=== PATIENT | female | born 1965 | race Asian ===

== ENCOUNTER 2020-07-24 10:14 | Emergency (ER) | payer OTHER ==
[~2020-07-24] VITALS: Ht 157.5 cm; Wt 62.6 kg
[2020-07-24 10:19] VITALS: BP 154/78
--- NOTE | 2020-07-24 10:20 | NUR ---
54 y/o F BIB SELF C/C OF [address] LEFT LEG PAIN THAT BEGAN X3DAYS AGO WHILE SHE WAS AT HOME. SHE ADMITS THE PAIN STOPS WHEN SHE LAYS DOWN OR STANDS UP BUT IS AGGREVATED WHEN SHE WALKS. PT DENIES ANY INJURY. SHE REPORTS GOING TO URGENT CARE YESTERDAY AND RECEIVED A SHOT BUT NO US OR SCANS WERE DONE. THE URGENT CARE DR PRESCRIBED HER IBUPROFEN AND BACLOFEN WHICH PT REPORTS NO RELIEF OF SX WHEN SHE TOOK THE RX LAST NIGHT. PT DENIES CHEST PAIN, SOB, PALPITATIONS, N/V, EDEMA. BILATERAL LOWER EXTREMETIES 2+ AND BOUNDING. CAP REFILL BRISK <2. PMH: HTN, HYPERLIPIDEMIA RX: ATENOLOL, ASPIRIN, SIMVASTATIN SOC HX: [employer]
[2020-07-24] MEDS ORDERED: KETOROLAC 30 MG/ML VIAL IM ONE (10:30)
--- NOTE | 2020-07-24 10:40 | NUR ---
RAD AT BEDSIDE.
--- NOTE | 2020-07-24 11:01 | NUR ---
US AT BEDSIDE
[2020-07-24] MEDS ORDERED: NAPR-54 PO (12:25)
[2020-07-24 12:39] VITALS: BP 145/79
--- NOTE | 2020-07-24 12:39 | NUR ---
Patient discharged with v/s stable. Written and verbal after care instructions given and explained. Patient alert, oriented and verbalized understanding of instructions. Ambulatory with steady gait. All questions addressed prior to discharge. ID band removed. Patient advised to follow up with PMD. Rx of Naproxen 500mg sent to [facility] in [place]. Patient educated on indication of medication including possible reaction and side effects. Opportunity to ask questions provided and answered. Work excuse provided until 07/27/2020.
== END 2020-07-24 12:39 | disposition home or self-care (01) ==
LOC: MED 10:14
DX: M79.662 Pain in left lower leg (principal); E78.00 Pure hypercholesterolemia, unspecified; I10 Essential (primary) hypertension
CPT/HCPCS: 73590; 93971; 96372; 99284; J1885